=== PATIENT | female | born 1950 | race Caucasian/White ===

== ENCOUNTER 2017-11-24 18:34 | Emergency (ER) | payer OTHER ==
[~2017-11-24] VITALS: Ht 149.9 cm; Wt 52.2 kg
[2017-11-24 20:41] LABS: ABSOLUTE BASOPHIL COUNT 0 /CUMM (0.0-0.2); ABSOLUTE EOSINOPHIL COUNT 0 /CUMM (0.0-0.7); ABSOLUTE GRANULOCYTE CT 9.4 /CUMM (1.4-6.5); ABSOLUTE LYMPH COUNT 1.1 /CUMM (1.2-3.4); ABSOLUTE MONOCYTE COUNT 0.6 /CUMM (0.10-0.60); BASOPHIL % 0.2 % (0.0-2.0); EOSINOPHIL % 0.1 % (0-5); HEMATOCRIT 41.4 % (37-47); MEAN CORPUSCULAR HGB 32.7 PG (27.0-31.0); MEAN CORPUSCULAR HGB CONC 34.7 G/DL (33.0-37.0); MEAN PLATELET VOLUME 7.4 FL (7.4-10.4); PLATELET COUNT 362 /CUMM (130-400); RBC DISTRIBUTION WIDTH 13.1 % (11.5-14.5); RED BLOOD CELL CT 4.41 /CUMM (4.20-5.40); WHITE BLOOD CELL COUNT 11.2 /CUMM (4.8-10.8)
[2017-11-24 20:43] LABS: GRANULOCYTE % 84.5 % (42.2-75.2)
--- NOTE | 2017-11-24 21:27 | ED GI/GU/ABDOMINAL COMPLAINT ---
History of Present Illness General Chief Complaint: Abdominal Pain/Flank Pain Stated Complaint: ABDOMINAL PAIN/VOMITING,SHIVERING Source: patient Exam Limitations: no limitations Vital Signs & Intake/Output Vital Signs & Intake/Output Vital Signs Date Time Temp Pulse Resp B/P B/P Pulse O2 O2 Flow FiO2 Mean Ox Delivery Rate 11/25 0020 98.2 82 20 132/88 99 Room Air 11/24 2232 88 18 129/72 99 11/24 1901 98.0 90 18 155/86 98 Room Air ED Intake and Output 11/25 0000 11/24 1200 Intake Total 1000 Output Total Balance 1000 Intake, IV 1000 Patient 115 lb Weight Weight Reported by Patient Measurement Method Allergies Coded Allergies: No Known Allergies (11/24/17) Reconcile Medications Clopidogrel Bisulfate (Clopidogrel) 75 MG TABLET 1 TAB PO DAILY BLOOD THINNER (Reported) Levothyroxine Sodium (Synthroid) 50 MCG TABLET 1 TAB PO DAILY THYROID ( Reported) Lisinopril 20 MG TABLET 1 TAB PO DAILY BP (Reported) Multivitamin (Multi-Vitamin Daily) 1 EACH TABLET 1 TAB PO DAILY SUPPLEMENT ( Reported) Ondansetron (Zofran Odt) 4 MG TAB.RAPDIS 1 TAB SL TID PRN nausea Triage Note: PT ARRIVES VOMITING STATES SHE STARTED WITH RIGHT SIDED BACK PAIN NOW SHE HAS DIFFUSE ABD PAIN WITH VOMITING. PT REPORTS VOMITING 8 TIMES SINCE SHE GOT HOME FROM WORK. PT HAS CHILLS, TAKEN TO EKG [place]. Triage Nurses Notes Reviewed? yes ? n Is pt currently ? No Onset: Gradual Duration: hour(s): Timing: multiple episodes today Quality/Severity: moderate, severe Severity Numbers: 8 Location: upper abdomen HPI: 67-year-old female with history of hypertension presents to ED complaining of abdominal pain beginning a few hours prior to arrival. Pain is described as intermittent sharp shooting pain, bilateral upper abdominal, sharp, 8/10. Patient experiences periods of relief in between sets of pain, currently during exam patient states pain is 0/10. Patient reports associated nausea and nonbilious, nonbloody vomiting following onset of abdominal pain. Patient reports loose stools which she states is normal for her, last bowel movement around 1 PM today. She has no history of similar abdominal pain in the past. Patient denies fevers, chest pain, dyspnea, urinary symptoms. (Landy SCHWARTZ,Tana Short) Past History Travel History Traveled to [place] past 21 day No Medical History Any Pertinent Medical History? see below for history Neurological: ?CVA Cardiovascular: hypertension Endocrine: hypothyroidism Surgical History Surgical History: tubal ligation Psychosocial History What is your primary language Italian Tobacco Use: Never used ETOH Use: occasional use Illicit Drug Use: denies illicit drug use Family History Hx Contributory? No (Tana Keller) Review of Systems Review of Systems Constitutional: Reports: no symptoms. EENTM: Reports: no symptoms. Respiratory: Reports: no symptoms. Cardiovascular: Reports: no symptoms. GI: Reports: see HPI. Genitourinary: Reports: no symptoms. Musculoskeletal: Reports: no symptoms. Skin: Reports: no symptoms. Neurological/Psychological: Reports: no symptoms. Hematologic/Endocrine: Reports: no symptoms. Immunologic/Allergic: Reports: no symptoms. All Other Systems: Reviewed and Negative (Tana Keller) Physical Exam Physical Exam General Appearance: well developed/nourished, no apparent distress, alert, awake Head: atraumatic, normal appearance Eyes: Bilateral: normal appearance. Ears, Nose, Throat, Mouth: hearing grossly normal Neck: normal inspection, supple, full range of motion Respiratory: normal breath sounds, no respiratory distress, lungs clear Cardiovascular: regular rate/rhythm Gastrointestinal: normal bowel sounds, soft, no organomegaly, RUQ, LUQ, LLQ tenderness Back: normal inspection, normal range of motion Extremities: normal range of motion Neurologic/Psych: awake, alert, oriented x 3 Skin: intact, normal color, warm/dry Core Measures ACS in differential dx? No Sepsis Present: No Sepsis Focused Exam Completed? No (Tana Keller) Progress Differential Diagnosis: appendicitis, bowel obstruction, diverticulitis, hernia, inflamm bowel dis, pancreatitis, peptic ulcer, SBO, UTI/pyelo Plan of Care: Orders Procedure Date/time Status URINALYSIS 11/24 2058 Complete TROPONIN LEVEL 11/24 185 Complete LIPASE 11/24 1851 Complete LACTIC ACID 11/24 185 Complete COMPREHENSIVE METABOLIC PANEL 11/24 185 Complete CBC WITHOUT DIFFERENTIAL 11/24 1850 Complete EKG 11/24 1836 Active Laboratory Tests 11/24/17 2328: Urine Color YEL, Urine Clarity CLEAR, Urine pH 6.5, Ur Specific [place] 1.010, Urine Protein NEG, Urine Ketones 15 H, Urine Nitrite NEG, Urine Bilirubin NEG, Urine Urobilinogen 0.2, Ur Leukocyte Esterase NEG, Ur Microscopic EXAM NOT REQUIRED, Urine Hemoglobin NEG, Urine Glucose NEG 11/24/172150: Lactic Acid Cancelled 11/24/172033: Anion Gap 12, Estimated GFR > 60, BUN/Creatinine Ratio 30.0 H, Glucose 117 H, Lactic Acid 1.2, Calcium 10.8 H, Total Bilirubin 0.8, AST 28, ALT 33, Alkaline Phosphatase 73, Troponin I < 0.01, Total Protein 7.3, Albumin 4.2, Globulin 3.1, Albumin/Globulin Ratio 1.4, Lipase 153, CBC w Diff NO MAN DIFF REQ, RBC 4.41, MCV 94.0, MCH 32.7 H, MCHC 34.7, RDW 13.1, MPV 7.4, Gran % 84.5 H, Lymphocytes % 9.9 L, Monocytes % 5.3, Eosinophils % 0.1, Basophils % 0.2, Absolute Granulocytes 9.4 H, Absolute Lymphocytes 1.1 L, Absolute Monocytes 0.6, Absolute Eosinophils 0, Absolute Basophils 0 CT scan shows no acute abnormality. Patient's labs are stable, non-actionable. Patient reports improvement following IV fluids and Zofran. Patient has not had a episode of abdominal pain for a few hours now. Patient states she is comfortable going home at this time. Vital signs are stable, she is in no acute distress. She had not had any vomiting here in the emergency Department. Patient was given strict return precautions. She'll follow-up with her primary care doctor next week. The patient agrees with the plan of care. Diagnostic Imaging: Viewed by Me: CT Scan. Discussed w/RAD: CT Scan. Radiology Impression: PATIENT: AVERY SINGH PRESENT AGE: 67 PATIENT ACCOUNT NO: [id number] : 48 LOCATION: ER ORDERING PHYSICIAN: Manuel SCHWARTZ SERVICE DATE: 11/24/17 EXAM TYPE: CAT - CT ABD & PELVIS W IV CONTRAST EXAMINATION: CT ABDOMEN AND PELVIS WITH CONTRAST CLINICAL INFORMATION: Abdominal pain nausea vomiting COMPARISON: None DLP 247 TECHNIQUE: Multidetector volumetric imaging was performed of the abdomen and pelvis following IV administration of 95 mL of Optiray 320 intravenous contrast. Sagittal and coronal reformatted images were obtained on the technologist's workstation. DLP: 247 mGy-cm FINDINGS: LUNG BASES: The visualized lung bases are unremarkable. LIVER, GALLBLADDER, AND BILIARY TREE: There is mild hepatic steatosis no focal abnormality. No intrahepatic or extra hepatic biliary dilatation. The gallbladder is normal. PANCREAS: Unremarkable. SPLEEN: Unremarkable. ADRENAL GLANDS: Unremarkable. KIDNEYS AND URETERS: The kidneys are normal in size, shape, and attenuation. No hydronephrosis, hydroureter, or calculi seen. No perinephric stranding. BLADDER: Unremarkable. GASTROINTESTINAL TRACT: There is scattered diverticulosis without diverticulitis. Appendix is not visualized but there is no inflammatory changes in the right lower quadrant Peritoneal cavity: There is a small amount of free fluid in the lower abdomen and pelvis.. ABDOMINAL WALL: No significant hernia is appreciated. LYMPH NODES: Normal. VASCULAR: There is mild arterial calcification throughout PELVIC VISCERA : Unremarkable. OSSEOUS STRUCTURES: There is mild spondylosis of the lumbar sacral spine with grade 1 degenerative spondylolisthesis at L4-L5 IMPRESSION: No definite acute abnormality. Diverticulosis without diverticulitis. Trace free fluid in the pelvis and lower abdomen. Hepatic steatosis Mild spondylosis of the lumbar sacral spine. Mild calcific atherosclerosis. DICTATED BY: Tyson Tapia MD DATE/TIME DICTATED:11/24/172230 ELECTRIC METER REPAIRER:TRISH DATE/TIME TRANSCRIBED:11/24/172230 CONFIDENTIAL, DO NOT COPY WITHOUT APPROPRIATE AUTHORIZATION. <Electronically signed in Other Vendor System> SIGNED BY: Tyson Tapia MD 11/24/17 5769 Initial ED EKG: sinus rhythm @91bpm, nonspecific ST changes (Landy SCHWARTZ,Tana Short) Departure Departure Disposition: HOME OR SELF CARE Condition: Stable Clinical Impression Primary Impression: Abdominal pain Qualifiers: Abdominal location: unspecified location Qualified Code: R10.9 - Unspecified abdominal pain Secondary Impressions: Nausea & vomiting Qualifiers: Vomiting type: unspecified Vomiting Intractability: non-intractable Qualified Code: R11.2 - Nausea with vomiting, unspecified Referrals: Annabelle RAMSAY,Ora (PCP/Family) Additional Instructions: Take Zofran as prescribed as needed for nausea. Follow up with your primary care doctor. Return if you have worsening symptoms or concerns. Please note that there might be incidental findings in your evaluation that are unrelated to the current emergency department visit. Please notify your primary care doctor about this emergency department visit in order to obtain and review all of the testing performed so that these incidental findings can be monitored as needed. If you had an x-ray performed, please understand that some fractures may not be seen on the initial set of x-rays. If your symptoms persist you might need a repeat set of x-rays to check for such a fracture. If you had a laceration evaluated, please understand that foreign bodies such as glass or wood may not be visible to the naked eye or on plain x-rays. If the wound becomes red, swollen, increasingly more painful or if there is any drainage from the wound, please have it reevaluated by a physician for the possibility of a retained foreign body. If you're unable to follow up as outlined in the discharge instructions please return to the emergency department. Thank you for choosing the [facility] Emergency Department for your care. It was a pleasure to serve you today. Departure Forms: Customer Survey General Discharge Information Prescriptions: Current Visit Scripts Ondansetron (Zofran Odt) 1 TAB SL TID PRN nausea #10 TAB (Landy SCHWARTZ,Tana Short) PA/PATTERN GRADER Co-Sign Statement Statement: ED Attending supervision documentation- [] I saw and evaluated the patient. I have also reviewed all the pertinent lab results and diagnostic results. I agree with the findings and the plan of care as documented in the PA's/PATTERN GRADER's documentation. [x] I have reviewed the ED Record and agree with the PA's/PATTERN GRADER's documentation. [] Additions or exceptions (if any) to the PAs/PATTERN GRADER's note and plan are summarized below: [] (Ruthie RAMSAY,Kenan Ray)
[2017-11-24] MEDS ORDERED: SYNTHROID50 MCG PO (22:36)
[2017-11-24] MEDS ORDERED: LISINOPRIL20 M1 PO (22:36)
[2017-11-24] MEDS ORDERED: MULTI-VITAMIN1 EACH PO (22:37)
[2017-11-24] MEDS ORDERED: CLOPIDOGREL75 M1 PO (22:37)
--- NOTE | 2017-11-24 22:52 | CT SCAN REPORT ---
EXAMINATION: CT ABDOMEN AND PELVIS WITH CONTRAST CLINICAL INFORMATION: Abdominal pain nausea vomiting COMPARISON: None DLP 247 TECHNIQUE: Multidetector volumetric imaging was performed of the abdomen and pelvis following IV administration of 95 mL of Optiray 320 intravenous contrast. Sagittal and coronal reformatted images were obtained on the technologist's workstation. DLP: 247 mGy-cm FINDINGS: LUNG BASES: The visualized lung bases are unremarkable. LIVER, GALLBLADDER, AND BILIARY TREE: There is mild hepatic steatosis no focal abnormality. No intrahepatic or extra hepatic biliary dilatation. The gallbladder is normal. PANCREAS: Unremarkable. SPLEEN: Unremarkable. ADRENAL GLANDS: Unremarkable. KIDNEYS AND URETERS: The kidneys are normal in size, shape, and attenuation. No hydronephrosis, hydroureter, or calculi seen. No perinephric stranding. BLADDER: Unremarkable. GASTROINTESTINAL TRACT: There is scattered diverticulosis without diverticulitis. Appendix is not visualized but there is no inflammatory changes in the right lower quadrant Peritoneal cavity: There is a small amount of free fluid in the lower abdomen and pelvis.. ABDOMINAL WALL: No significant hernia is appreciated. LYMPH NODES: Normal. VASCULAR: There is mild arterial calcification throughout PELVIC VISCERA: Unremarkable. OSSEOUS STRUCTURES: There is mild spondylosis of the lumbar sacral spine with grade 1 degenerative spondylolisthesis at L4-L5 IMPRESSION: No definite acute abnormality. Diverticulosis without diverticulitis. Trace free fluid in the pelvis and lower abdomen. Hepatic steatosis Mild spondylosis of the lumbar sacral spine. Mild calcific atherosclerosis.
[2017-11-24] MEDS ORDERED: ZOFRAN ODT4 M1 SL (23:36)
[2017-11-25 00:20] VITALS: BP 132/88
== END 2017-11-25 00:20 ==
LOC: ERH 18:34
PROVIDERS: Physician Assistant
DX: R10.11 Right upper quadrant pain (principal); R10.12 Left upper quadrant pain; R10.32 Left lower quadrant pain; R11.2 Nausea with vomiting, unspecified
CPT/HCPCS: 74177; 81003; 93005; 93010; 96374; 96375; J2405